=== PATIENT | female | born 1980 | race Caucasian/White ===

== ENCOUNTER 2019-10-16 17:03 | Emergency (ER) | payer MEDICAID ==
[2019-10-16] MEDS ORDERED: ONDANSETRON HCL IV 4 MG/2 ML VIAL IVP ONE (17:37)
[2019-10-16] MEDS ORDERED: 0.9 % SODIUM CHLORIDE 1000ML 1,000 ML IV SCH (17:45)
--- NOTE | 2019-10-16 18:08 | Emergency Department Record ---
History of Present Illness - General Stated Complaint: VOMITTING,NAUSEA Time Seen by Provider: 10/16/19 17:36 Source: Patient Mode of Arrival: Ambulatory Limitations: No limitations - History of Present Illness Initial Comments: 39 yo female presents to ED for evaluation of dizziness intermittently for the past 3 weeks. Patient was seen by her PCP, prescribed Meclazine that improves her symptoms for short periods of time, but then wears off. Patient reports intermittent nausea and vomiting symptoms, denies headache symptoms or focal weakness symptoms. Patient denies fevers, chills, or recent illness. Patient also denies health problems at her baseline, but is concerned as she is unable to go to work due to her symptoms. MD Complaint: Dizziness Onset/Timin -: Week(s) Timing: Intermittent History of Same: No History of Trauma: No Severity: Moderate Improves With: Other (Supine) Worsens With: Position Associated Symptoms: Denies other symptoms - Jay Coma Scale Eye Response: (4) Open spontaneously Motor Response: (6) Obeys commands Verbal Response: (5) Oriented Babcock Total: 15 - Related Data Home Medications Medication Instructions Recorded Confirmed Last Taken No Home Med [NO HOME MEDS] 10/16/19 10/16/19 Unknown Allergies Allergy/AdvReac Type Severity Reaction Status Date / Time No Known Drug Allergies Allergy Verified 10/16/19 18:36 Review of Systems Constitutional: Denies: Chills, Fever, Malaise, Night sweats Eyes: Denies: Eye discharge, Eye pain ENT: Denies: Congestion, Ear pain, Epistaxis Respiratory: Denies: Cough, Dyspnea Cardiovascular: Denies: Chest pain, Dyspnea on exertion Endocrine: Denies: Fatigue, Heat or cold intolerance Gastrointestinal: Denies: Abdominal pain, Nausea, Vomiting Genitourinary: Denies: Incontinence, Retention Musculoskeletal: Denies: Arthralgia, Back pain Skin: Denies: Bruising, Change in color Neurological: Reports: Vertigo. Denies: Abnormal gait, Confusion, Headache, Numbness, Tingling, Tremors Psychiatric: Denies: Anxiety Hematological/Lymphatic: Denies: Anemia, Blood Clots Physical Exam - General General Appearance: Alert, Oriented x3, Cooperative, No acute distress, Other (Normal ambulation, normal neurological examination.) Limitations: No limitations - Head Head exam: Atraumatic, Normocephalic, Normal inspection Head exam detail: negative: Abrasion, Contusion, Escobar's sign, General tenderness, Hematoma, Laceration - Eye Eye exam: Normal appearance, PERRL. negative: Conjunctival injection, Periorbit al swelling, Periorbital tenderness, Scleral icterus - ENT Ear exam: negative: Auricular hematoma, Auricular trauma Nasal Exam: negative: Active bleeding, Discharge, Dried blood, Foreign body Mouth exam: negative: Drooling, Laceration, Muffled voice, Tongue elevation - Neck Neck exam: Normal inspection. negative: Meningismus, Tenderness - Respiratory Respiratory exam: Normal lung sounds bilaterally. negative: Respiratory distre ss, Rhonchi, Stridor, Wheezes - Cardiovascular Cardiovascular Exam: Regular rate, Normal rhythm, Normal heart sounds - GI/Abdominal GI/Abdominal exam: Soft. negative: Distended, Rebound, Rigid, Tenderness - Rectal Rectal exam: Deferred - exam: Deferred - Extremities Extremities exam: Normal inspection. negative: Pedal edema, Tenderness - Back Back exam: Denies: CVA tenderness (R), CVA tenderness (L) - Neurological Neurological exam: Alert, Normal gait, Oriented X3 - Psychiatric Psychiatric exam: Normal affect, Normal mood - Skin Skin exam: Normal color. negative: Abrasion Type of lesion: negative: abrasion Course - Reevaluation(s) Reevaluation #1: 10/16/19 18:35 EKG: NSR 91 Normal axis, normal intervals Nonspecific ST-T wave changes Reevaluation #2: 10/16/19 19:12 Laboratory studies were reviewed and appear grossly unremarkable for an acute process. Reevaluation #3: 10/16/19 19:48 UA was reviewed and appears c/w contamination CT Head: Mild soft-tissue air felt to be the result of venous cannulation No acute process identified Patient was updated on all results, reports that she is feeling at her baseline, and appears stable for discharge with instructions to follow-up with erh PCP for further evaluation in 3-5 days as directed. Medical Decision Making - Lab Data Result diagrams: 10/16/19 18:25 10/16/19 18:25 Disposition Disposition: Discharge Clinical Impression: Vertigo Disposition: Home, Self-Care Condition: (2) Stable Instructions: Vertigo (ED) Additional Instructions: Return to ED if your symptoms worsen or if you have any concerns. Continue Antivert as prescribed. Follow-up with your family doctor in 3-5 days as directed. Forms: Patient Portal Access Time of Disposition: 19:51 Quality - Quality Measures Quality Measures: N/A - Blood Pressure Screening Does Patient Have Any of the Following: No Blood Pressure Classification: Normal BP Reading Systolic Measurement: 113 Diastolic Measurement: 62 Screening for High Blood Pressure: < Normal BP, F/U Not Required > [G8741]
[2019-10-16 18:48] LABS: ABSOLUTE NEUTROPHIL COUNT 6.29; BASO % 0.2 % (0-6); EOS % 0.9 % (0-6); GRAN % 65.3 % (47-80); HEMATOCRIT 41.6 % (35.0-47.0); HEMOGLOBIN 13.5 gm/dl (11.6-16.0); LYMPH % 26.8 % (16-45); MEAN CELL VOLUME 93.9 fl (81-97); MEAN CORPUSCULAR HEMOGLOBIN 30.5 pg (27-33); MEAN CORPUSCULAR HGB CONC 32.5 g/dl (32-36); MEAN PLATELET VOLUME 10.5 fl (7.4-10.4); MONO % 6.8 % (0-9); PLATELET COUNT 319 K/uL (130-400); RED BLOOD COUNT 4.43 M/uL (3.80-5.40); RED CELL DISTRIBUTION WIDTH 12.7 % (11.5-14.5); WHITE BLOOD COUNT W/O DIFF 9.7 K/uL (4.2-12.2)
[2019-10-16 18:57] LABS: BLOOD UREA NITROGEN 23 mg/dL (6-20); CREATININE 0.7 mg/dL (0.5-0.9); EST GLOMERULAR FILTRATION RATE > 60 mL/min
[2019-10-16 19:00] LABS: GLUCOSE,RANDOM 85 mg/dL (74-109)
[2019-10-16 19:02] LABS: ALT/SGPT 19 U/L (<33); AST/SGOT 15 U/L (10.0-35.0)
[2019-10-16 19:03] LABS: ALB/GLOB RATIO 1.7 (1.1-1.8); ALBUMIN 4.4 g/dL (4.0-5.0); ALKALINE PHOSPHATASE 52 U/L (35-104)
[2019-10-16 19:39] LABS: URINE APPEARANCE CLEAR; URINE BILIRUBIN NEGATIVE (NEGATIVE); URINE BLOOD TRACE-I (NEGATIVE); URINE COLOR YELLOW; URINE GLUCOSE (UA) NEGATIVE (NEGATIVE); URINE KETONE NEGATIVE (NEGATIVE); URINE LEUKOCYTE ESTERASE NEGATIVE (NEGATIVE); URINE NITRITE NEGATIVE (NEGATIVE); URINE PROTEIN NEGATIVE (NEGATIVE); URINE UROBILINOGEN 0.2 E.U./dL (0.20 - 1.00)
--- NOTE | 2019-10-16 19:39 | CT SCAN REPORT ---
EXAMINATION: HEAD WO CONTRAST EXAM DATE: 10/16/2019 6:57 PM TECHNIQUE: Noncontrast axial imaging of the head INDICATION: dizzyness. Dizziness, room spinning for two weeks, eight weeks total. COMPARISON: None HAND DOMINANCE: unknown FINDINGS: There is no acute intracranial hemorrhage. There is no evidence for acute infarct. There is no chronic infarct. There is no mass effect, midline shift or evidence for mass The ventricular system and sulcal pattern are unremarkable for age. There is no extra-axial fluid collection. Visualized portion of the paranasal sinuses: is unremarkable Mastoids and middle ear: There is no fluid in the visualized portions of the right and left mastoid a ir cells and right and left middle ear. There is intracranial atherosclerotic calcifcation. No displaced skull fracture. Several focal areas of soft tissue air are noted in the right temporal fossa, right manager economic muscul ature and deep to the nasopharyngeal mucosa bilaterally. Most likely this represents venous air havin g entered via an intravenous line, not uncommonly seen. Possibility of air-producing infection/necrot izing fasciitis is not completely excluded but considered unlikely. Cranial dissection of a pneumomed iastinum is also considered possible but unlikely. Please correlate clinically. IMPRESSION: Soft tissue air noted. See above comments. Otherwise negative exam. Dictated by: Edin Min MD on 10/16/2019 7:20 PM. .
[2019-10-16 19:46] LABS: URINE WBC 0 - 2 (0-2/hpf)
[2019-10-16 19:47] LABS: HCG,QUALITATIVE URINE NEGATIVE (NEGATIVE); URINE BACTERIA 1+
== END 2019-10-16 20:04 | disposition home or self-care (01) ==
LOC: ER 17:03
DX: R42 Dizziness and giddiness (principal); R11.2 Nausea with vomiting, unspecified
CPT/HCPCS: 70450; 80053; 81001; 81025; 85025; 93005; 93010; 99284